=== PATIENT | male | born 1970 | race Caucasian/White ===

== ENCOUNTER 2020-05-22 08:25 | Outpatient (CLI) | payer OTHER, SELFPAY ==
--- NOTE | 2020-05-22 08:31 | EST_ITS ---
Patient Info Name: Sony Rinaldi Age: 50 years : 1970 Gender: Male Ht: 66 in Wt: 160 lbs BSA: 1.85 m2 Exam Date: 05/22/2020 8:44 AM Exam Location: [facility] Stress Patient Status: Outpatient Admit Date: 05/22/2020 Staff Ordering Physician: Britton Diop MD Attending Provider: Britton Diop MD Exercise Technologist: Dina Abbasi RDCS Exercise Physician: Baldomero Olson DO Exam Type: CA stress test treadmill Study Info Indications R07.9 - Chest pain, unspecified A treadmill exercise stress test was performed. Summary 1. 1. Negative Nadir exercise stress test for ischemic ST changes by ECG criteria. 2. 2. Good functional capacity, achieving 10 METs of workload. 3. 3. Appropriate HR response to exercise. 4. 4. Appropriate HR recovery at 1 minute post exercise. 5. 5. No imaging with stress testing. 6. 6. Patient informed of the above results. Protocol: Nadir Stress ECG Details Stage: REST Duration (min): 0 min : 48 sec Speed (mph): 0.0 Grade (%): 0 HR (bpm): 89 SBP (mmHg): 133 DBP (mmHg): 86 METS: --- Stage: REST Duration (min): 8 min : 8 sec Speed (mph): 0.0 Grade (%): 0 HR (bpm): 92 SBP (mmHg): 133 DBP (mmHg): 86 METS: --- Stage: STAGE 1 Duration (min): 1 min : 0 sec Speed (mph): 1.7 Grade (%): 10 HR (bpm): 106 SBP (mmHg): 133 DBP (mmHg): 86 METS: --- Stage: STAGE 1 Duration (min): 2 min : 0 sec Speed (mph): 1.7 Grade (%): 10 HR (bpm): 109 SBP (mmHg): 133 DBP (mmHg): 86 METS: --- Stage: STAGE 1 Duration (min): 3 min : 0 sec Speed (mph): 1.7 Grade (%): 10 HR (bpm): 112 SBP (mmHg): 149 DBP (mmHg): 77 METS: --- Stage: STAGE 2 Duration (min): 1 min : 0 sec Speed (mph): 2.5 Grade (%): 12 HR (bpm): 120 SBP (mmHg): 149 DBP (mmHg): 77 METS: --- Stage: STAGE 2 Duration (min): 2 min : 0 sec Speed (mph): 2.5 Grade (%): 12 HR (bpm): 124 SBP (mmHg): 158 DBP (mmHg): 78 METS: --- Stage: STAGE 2 Duration (min): 3 min : 0 sec Speed (mph): 2.5 Grade (%): 12 HR (bpm): 127 SBP (mmHg): 158 DBP (mmHg): 78 METS: --- Stage: STAGE 3 Duration (min): 1 min : 0 sec Speed (mph): 3.4 Grade (%): 14 HR (bpm): 134 SBP (mmHg): 158 DBP (mmHg): 78 METS: --- Stage: STAGE 3 Duration (min): 2 min : 0 sec Speed (mph): 3.4 Grade (%): 14 HR (bpm): 142 SBP (mmHg): 158 DBP (mmHg): 78 METS: --- Stage: STAGE 3 Duration (min): 3 min : 0 sec Speed (mph): 3.4 Grade (%): 14 HR (bpm): 146 SBP (mmHg): 160 DBP (mmHg): 94 METS: --- Stage: RECOVERY Duration (min): 0 min : 59 sec Speed (mph): 0.0 Grade (%): 0 HR (bpm): 133 SBP (mmHg): 160 DBP (mmHg): 94 METS: --- Stage: RECOVERY Duration (min): 1 min : 59 sec Speed (
== END 2020-05-22 08:26 | disposition home or self-care (01) ==
PROVIDERS: PCP Family Medicine; Visit Provider Family Medicine
DX: R07.9 Chest pain, unspecified (principal)
CPT/HCPCS: 93017

== ENCOUNTER → 2021-06-26 09:57 | Outpatient (CLI) | payer OTHER, SELFPAY ==
--- NOTE | ~2021-06-26 | MM_ITS ---
EXAMINATION: MM diagnostic mammo unilat LT HISTORY: Left breast lump found in April, not noticed dilatation today. TECHNIQUE: MLO and cc views of left breast; comparison MLO view of right breast. CAD analysis was sub mitted and interpreted. High resolution complete left axillary and left breast ultrasound was perform ed. COMPARISON: 07/03/2009 left mammogram BREAST PARENCHYMAL COMPOSITION: The breasts are almost entirely fatty. FINDINGS: MAMMOGRAPHIC FINDINGS: Minimal left gynecomastia, stable since 07/03/2009. Left axillary lymph nodes are noted, partially incl uded in the 06/2009 MLO view. On cone compression MLO view today these multiple left axillary nodes l ikely normal. Sonographic correlation of the left breast and axilla was performed. ULTRASOUND: Benign left axillary lymph node measuring 7 x 11.6 mm, thin uniform hypoechoic cortex and prominent f atty hilum. No suspicious left breast mass is noted. IMPRESSION: 1. Minimal left gynecomastia, stable since 07/03/2009 2. No mammographic evidence of malignancy BI-RADS Category 2: Benign finding(s). Reviewed, dictated and finalized at location A.
--- NOTE | ~2021-06-26 | US_ITS ---
US breast LT complete DATE: 06/26/2021 11:14 Please refer to 06/26/2021 combined left diagnostic mammogram and left breast ultrasound report. BI-RADS Category 2: Benign Reviewed, dictated and finalized at Location A. Reviewed, dictated and finalized at location A.
== END ==
PROVIDERS: PCP Family Medicine; Visit Provider Nurse Practitioner Family
DX: N62 Hypertrophy of breast (principal)
CPT/HCPCS: 76641; 77065

== ENCOUNTER 2022-09-19 16:37 | Emergency (ER) | payer OTHER, SELFPAY ==
[2022-09-19 16:50] VITALS: BP 159/103; PULSE 91; RESP 16; TEMP 37; O2SAT 99
--- NOTE | 2022-09-19 17:09 | ED.EYEPROB ---
HPI - Eye Problem General Chief complaint: Eye Problems Stated complaint: R EYE PAIN Time Seen by Provider: 09/19/22 16:55 Source: patient Mode of arrival: ambulatory Limitations: no limitations History of Present Illness HPI Narrative: Mr. Eckert is a 52-year-old male patient presenting to the clinic today with complaints of right eye pain x2 days. He reports that he thinks that he got something into his eye Thursday night however he does not recall any injury. He does not wear contacts. He reports that his vision is blurry in his eye is watering a lot with discomfort. Lights are making the discomfort worse. Denies any loss of vision Related Data Home Medications Medication Instructions Recorded Confirmed citalopram 10 mg tablet 10 mg PO DAILY 10/18/19 09/19/22 diphenhydramine HCl 25 mg tablet 25 mg PO Q6H PRN allergy symptoms 10/18/19 09/19/22 (Benadryl Allergy) alprazolam 0.25 mg tablet 0.25 mg PO BID PRN anxiety 02/09/20 09/19/22 cetirizine 10 mg tablet (Zyrtec) 10 mg PO DAILY PRN allergy symptoms 02/09/20 09/19/22 fluticasone propionate 50 1 spray intranasal BID 02/09/20 09/19/22 mcg/actuation nasal spray,suspension (Flonase Allergy Relief) lamotrigine 25 mg tablet 25 mg PO DAILY 02/04/21 09/19/22 Allergies Allergy/AdvReac Type Severity Reaction Status Date / Time ibuprofen Allergy Mild trigger Verified 09/19/22 16:46 asthma attach aspirin Allergy Unknown Asthma Verified 09/19/22 16:46 grass pollen Allergy Unknown Asthma Verified 09/19/22 16:46 tree and shrub pollen Allergy Unknown asthma Verified 09/19/22 16:46 Review of Systems Review of Systems: Pertinent positives per HPI. Patient denies any fever, chills, rash, headache, visual changes, dizziness, cough, runny nose, sore throat, shortness of breath, chest pain, palpitations, nausea, vomiting, diarrhea, constipation, abdominal pain, or any urinary issues. PMFSH Past Medical History Medical History Acute sinusitis, unspecified Allergies Arthritis of right acromioclavicular joint Asthma Asymmetry of clavicles BMI 25.0-25.9,adult BMI 27.0-27.9,adult Breast lump Chest pain Chronic pain in right shoulder Colon cancer screening COVID-19 (10/28/20) Encounter for prostate cancer screening Encounter for wellness examination in adult History of kidney stones Subacromial impingement of right shoulder Vitamin B12 deficiency anemia Family History Family History Mother Family history of thyroid disease Patient's mother is in good health Grandparent Diabetes mellitus, Onset Age: 72 Family history of alcoholism Family history of malignant neoplasm of stomach Family history of malignant neoplasm Family history of lung cancer Father Patient's father is in good health Family history of cardiovascular disease Diabetes mellitus Sibling Asthma Social History Social History Smoking status: Never smoker Alcohol intake: former Drinks per week: 4 Substance use: never Substance use type: does not use Additional occupation/education comments: Teacher Comments At the time of my signature, I reviewed and agree with the nursing past medical, surgical, social, and family history. There is no relevant family history pertinent to the patient complaint. Exam Narrative: General: Well-developed, well nourished, in no apparent distress Head: Normocephalic, atraumatic Eyes: Pupils equally round and reactive to light bilaterally, EOM intact, left sclera and conjunctive clear, right sclera and conjunctiva injected, watery clear discharge from the right eye, left lids normal, right lids mild swelling/redness Ears: TMs intact and clear, ear canals clear, no drainage, grossly hearing normal. Nose: Nares patent, no discharge, no inflammation, no si
== END 2022-09-19 17:15 | disposition home or self-care (01) ==
PROVIDERS: Emergency Provider Nurse Practitioner Family; PCP Family Medicine
DX: H18.9 Unspecified disorder of cornea (principal); T15.11XA Foreign body in conjunctival sac, right eye, initial encounter; X58.XXXA Exposure to other specified factors, initial encounter; M19.011 Primary osteoarthritis, right shoulder; J45.909 Unspecified asthma, uncomplicated; Z86.16 Personal history of COVID-19
CPT/HCPCS: 65205; 99213; A9270; G0463

== ENCOUNTER → 2022-09-22 16:09 | Outpatient (CLI) | payer OTHER, SELFPAY ==
--- NOTE | ~2022-09-22 | MR_ITS ---
EXAMINATION: MR shoulder RT wo con DATE: 09/22/2022 16:48 INDICATION: Right shoulder pain TECHNIQUE: Magnetic resonance imaging (MRI) of the right shoulder was performed without intravenous c ontrast. Sequences included axial PD-weighted FS FSE, coronal oblique PD-weighted FS FSE, coronal obl ique T2-weighted FS FSE, sagittal PD-weighted FS FSE, and sagittal T1-weighted SE. COMPARISON: None. FINDINGS: Coracoacromial arch: The acromion undersurface is curved in morphology (type II). Small anterior subacromial spur at the a cromial insertion of the normal coracoacromial ligament. Moderate acromioclavicular osteoarthritis wi th tiny inferiorly directed osteophytes which remains separate from the underlying supraspinatus musc le belly by thin intervening fat plane. Minimal subarticular cystic change along the lateral head of the clavicle. Rotator cuff: Moderate tendinopathy without tear at the conjoined portion of the supraspinatus and infraspinatus te ndons with mild tendinopathy of the more anterior supraspinatus and posterior infraspinatus tendon. T he teres minor and subscapularis tendons are normal. Normal rotator cuff muscle bulk and signal. Biceps tendon, glenoid labrum and glenohumeral cartilage: Long head of the biceps tendon is normal. Glenoid labrum is normal. Glenohumeral cartilage is normal. Fluid: Physiologic amount of fluid in the glenohumeral joint and biceps tendon sheath. No loose osteochondr al bodies. Small amount of fluid in the subacromial/subdeltoid bursa consistent with mild bursitis. Bones: Normal marrow signal with no edema, fracture or abnormal marrow replacing process. IMPRESSION: 1. Mild to moderate supraspinatus and infraspinatus tendinopathy without tear, greatest at the conjoi sergo portion of the tendon. 2. Moderate acromioclavicular osteoarthritis. 3. Mild subacromial/subdeltoid bursitis. Reviewed, dictated and finalized at location A. IMPRESSION: 1. Mild to moderate supraspinatus and infraspinatus tendinopathy without tear, greatest at the conjoined portion of the tendon. 2. Moderate acromioclavicular osteoarthritis. 3. Mild subacromial/subdeltoid bursitis.
== END ==
PROVIDERS: PCP Family Medicine; Visit Provider Nurse Practitioner
DX: G89.29 Other chronic pain (principal); M25.511 Pain in right shoulder; M75.81 Other shoulder lesions, right shoulder; M19.011 Primary osteoarthritis, right shoulder; M75.51 Bursitis of right shoulder
CPT/HCPCS: 73221

== ENCOUNTER 2022-10-07 00:55 | Day surgery (SDC) | payer OTHER, SELFPAY ==
[2022-10-03 09:31] VITALS: BMI 26.6
--- NOTE | 2022-10-03 09:36 | PC.NURSE ---
Report to the Outpatient Waiting Room, entrance under the green pavilion located off [facility], at time 0830 on date 10/07/22. Planned Procedure Time: 1030. Time changes happen often and if your time is changed the preop area will call you the afternoon before. - You and your visitor will be asked to self-screen and do not enter if you have any COVID symptoms. - We encourage only one visitor and NO visitors under age 16 are allowed at this time. Your visitor will receive communication by the phone number that is given day of service. - The patient visitor is requested to social distance or may leave the building when not with patient due to restrictions. - A mask is OPTIONAL within the hospital. Patients may have clear liquids (water, carbonated beverages, clear teas, apple juice) until 3 hours prior to surgery with a maximum of 20 ounces. - No food from midnight until time of surgery Take the following medications with a SIP of water the morning of surgery: INHALER, CITALOPRAM, LAMOTRIGINE Medications to discontinue per physician: N/A Date to take last dose: N/A Please no make-up, nail setswana, hairspray, perfume, deodorant, or body powder the day of surgery. No jewelry (including any body piercings) or valuables the day of surgery, leave them at home. Please take a shower or bath the night before, or the morning of, surgery with an antibacterial soap. Wear comfortable, loose fitting clothing. - Jewelry must be removed prior to entering the operating room. Rings and piercings that are not removed may be cut off. - The hospital will not accept responsibility for valuables. - Please leave all valuables, including medications, at home the day of surgery. If you are going home after surgery, a licensed milk wagon driver must drive you home. - NO public transportation without another adult. - We recommend that an adult stay with you for 24 hours following discharge. - We also recommend that you do not drive, make important decision, drink alcoholic beverages, or take any drugs that were not prescribed by your health care provider for at least 24 hours after your discharge time. Follow any additional instructions given to you from your surgeon. If you or anyone in your household have experienced Covid symptoms in the past week, please notify your surgeon or the nurse liaison at the phone number below for possible testing. Telephone instructions given to PT - MARK SEARS and asked if any additional questions and then verbalized understanding. Patient advised to call surgeon office or pre surgery nurse liaison [phone] if any additional questions.
[2022-10-07] VITALS (11 sets, daily range): BP systolic 126–152; BP diastolic 69–94; PULSE 80–103; RESP 14–18; TEMP 36.3–36.8; O2SAT 93–99
[2022-10-07] MEDS: ACETAMINOPHEN 500 MG TABLET 1000 MG PO (08:48)
[2022-10-07] MEDS: LACTATED RINGERS 1,000 ML 30 ML IV CONT ×2 (08:48→11:43)
--- NOTE | 2022-10-07 09:32 | WPDHPUPDATE1 ---
History and Physical Update Update Date/Time: 10/07/22 09:32 History and Physical has been reviewed, including an updated exam of the patient. There are NO changes in the patient's condition. Risks, benefits, and alternatives have been discussed and questions answered. Patient agrees to proceed with procedure.
--- NOTE | 2022-10-07 09:35 | WPDANESEPPF ---
Anes - Initial Pre Proc Eval Procedure: Operation Date: 10/07/22 10:00 Proposed Procedures p Right Shoulder Acromioplasty, Distal Clavicle Excision - Josef Brizuela MD Date/Time: 10/07/22 09:35 Surgeon: Josef Brizuela MD Pre Op Diagnosis: right shoulder impingement , ac arthritis Patient Data Age: 52 Gender: M Height: 1.68 m Weight: 76.2 kg Last Vital Signs Temp 36.8 C 10/07/22 08:56 Pulse 91 10/07/22 08:56 Resp 16 10/07/22 08:56 BP 134/79 10/07/22 08:56 Pulse Ox 98 10/07/22 08:56 O2 Del Method Room Air 10/07/22 08:56 Allergies Allergy/AdvReac Type Severity Reaction Status Date / Time ibuprofen Allergy Mild trigger Verified 10/07/22 08:03 asthma attach aspirin Allergy Unknown Asthma Verified 10/07/22 08:03 grass pollen Allergy Unknown Asthma Verified 10/07/22 08:03 tree and shrub pollen Allergy Unknown asthma Verified 10/07/22 08:03 Home Medications Medication Instructions Recorded Confirmed Type citalopram 10 mg tablet 10 mg PO DAILY 10/18/19 10/07/22 History diphenhydramine HCl 25 mg tablet 25 mg PO Q6H PRN allergy symptoms 10/18/19 10/03/22 History (Benadryl Allergy) albuterol sulfate 1.25 mg/3 mL 1.25 mg (3 mL) inhalation Q4-6H 02/09/20 10/07/22 Rx solution for nebulization PRN bronchospasm #90 mL alprazolam 0.25 mg tablet 0.25 mg PO BID PRN anxiety 02/09/20 10/03/22 History cetirizine 10 mg tablet (Zyrtec) 10 mg PO DAILY PRN allergy symptoms 02/09/20 10/07/22 History fluticasone propionate 50 1 spray intranasal BID 02/09/20 10/07/22 History mcg/actuation nasal spray,suspension (Flonase Allergy Relief) lamotrigine 25 mg tablet 25 mg PO DAILY 02/04/21 10/07/22 History mometasone-formoterol HFA 200 2 puff inhalation Q12H #39 grams 10/28/21 10/07/22 Rx mcg-5 mcg/actuation aerosol inhaler (Dulera) pantoprazole 40 mg tablet,delayed 40 mg PO QAM #90 tabs 09/29/22 10/07/22 Rx release (Protonix) Patient hx anesthesia problems: none Family hx anesthesia problems: none Results Review: All pre-operative results and documents have been reviewed as part of the pre-operative evaluation. [facility] Past Medical History Medical History Acute sinusitis, unspecified Allergies Arthritis of right acromioclavicular joint Asthma Asymmetry of clavicles BMI 25.0-25.9,adult BMI 27.0-27.9,adult Breast lump Chest pain Chronic pain in right shoulder Colon cancer screening COVID-19 (10/28/20) Encounter for prostate cancer screening Encounter for wellness examination in adult History of kidney stones Subacromial impingement of right shoulder Vitamin B12 deficiency anemia Surgical History Surgical History (Updated 10/07/22 @ 09:36 by Jamshid Mojica MD) H/O sinus surgery H/O thumb surgery S/P cystoscopy Family History Family History Mother Family history of thyroid disease Patient's mother is in good health Grandparent Diabetes mellitus, Onset Age: 72 Family history of alcoholism Family history of malignant neoplasm of stomach Family history of malignant neoplasm Family history of lung cancer Father Patient's father is in good health Family history of cardiovascular disease Diabetes mellitus Sibling Asthma Social History Social History Smoking status: Never smoker Alcohol intake: current Drinks per week: 4 Alcohol use details: 2/MONTH Substance use: never Substance use type: does not use Living arrangements: with family Additional occupation/education comments: Teacher Spiritual care concerns: No Anes - Eval Final PreProcedure Day of Procedure 10/07/22 09:35 Patient weight: overweight Heart: regular rate and rhythm Lungs: clear to auscultation Airway: Mallampati scale class II Neurological: alert and oriented Last oral intake: >/= 8
--- NOTE | 2022-10-07 09:58 | WPDANESPNB ---
Anes - Peripheral Nerve Block Date/Time: 10/07/22 09:58 I have discussed with the patient/family/POA the placement of a peripheral nerve block for post-operative pain management, including associated risks, benefits, complications, and side effects. Alternative methods of post-operative analgesia were detailed. Questions were solicited and answers provided to the satisfaction of the patient/family/POA. Time-Out: A pre-procedural Time-Out was completed immediately before starting the procedure and confirmed: Patient Identification, Site, Procedure, Patient Position and the Availability of Requisite Equipment. Clinical Indications: Acute post-operative pain management requested by the operative surgeon. Nerve Block Insertion Note Anes-nerve block: interscalene right Patient position: supine Skin prep: chlorhexidine Needle: 22 gauge, stimulating, insulated echogenic needle. Needle length: 50 mm Technique: ultrasound Injectate: bupivacaine 0.5% with epi 5 mcg/ml (30cc no epi) and dexamethasone (mg) (8) Observations: tolerated well Complications: none Procedure start time:: 955 Procedure end time:: 1002
[2022-10-07] MEDS: ceFAZolin 2 GM/D5W 50 ML 2 GM/50 ML BAG IVPB (10:17)
[2022-10-07] MEDS: LIDOCAINE HCL 1% LOCAL INJ 20 ML VIAL 10 ML INFILTRATE (10:59)
--- NOTE | 2022-10-07 11:37 | W.PM.PROC2 ---
Procedure Note - Detailed Date of Procedure 10/07/22 Pre-op Diagnosis right shoulder impingement , ac arthritis Post-op Diagnosis Other ( right rotator cuff tear with AC arthritis) Procedure Performed right shoulder rotator cuff repair with distal clavicle excision Surgeon Josef Brizuela MD Research Quality Assurance Analyst Mitra Vasquez Anesthesia General and Regional Description of Procedure Patient was identified and proper site identified. In the preop holding area the anesthesia team performed a right upper extremity block. He was then taken to the operating room and transferred to the or table taking care to pad the torso and extremities. After general anesthetic induction and intubation, he was put in a semi beach chair position in the usual manner for a right shoulder procedure. His head was secured taking care to neither rotate nor extend the head and neck. The right upper extremity was prepped and draped free in usual sterile fashion. The subcutaneous tissue in the area of the incision was injected with 10 cc of 1% lidocaine solution. An oblique anterior incision was made extending from the AC joint distally in line with the fibers of the deltoid. Subcutaneous tissue was sharply dissected down to the deltoid fascia. The deltoid was dissected off the anterior portion of the acromion in the distal end of the clavicle. A 2 cm split was made at the junction between the anterior and middle thirds of the deltoid. Using the microsagittal saw the last 8 mm of clavicle removed. The saw was also used to perform the acromioplasty and then the undersurface of the acromion was rasped smooth. the rotator cuff was inspected. In the mid portion of the supraspinatus tendon there was an area of erosion of at least 50% of the tendon with frayed edges. The cuff attachment to the greater tuberosity was solid throughout. The degenerative tendon was debrided and then the defect repaired side to side with 2. Ethibond suture giving a nice solid repair which was stable as the shoulder was taken through range of motion. The wound was irrigated with sterile NaCl solution. The deltoid was repaired back to the acromion with 2. Ethibond suture passed through bone and the remainder of the deltoid repair carried out with 2. Vicryl. Subcutaneous tissue was reapproximated with 3-0 V lock and then tissue adhesive used for the skin. Sterile dressing was applied. There were no known intraoperative complications, and perioperative antibiotics were administered. Estimated Blood Loss 20 Drains No Packing No Pathology None sent Complications No immediate complications Condition Stable Disposition PACU
--- NOTE | 2022-10-07 12:35 | SUR.PHASEI ---
1230 DR KAHN AWARE PT C/O NOT BEING ABLE TO BREATHE . BREATH SOUNDS CLEAR IN RT UPPER LOBE, & DIMINISHED IN RT LOWER LOBES. O2 SATS 91-92% ON ROOM AIR. NO WHEEZING NOTED.- DR KAHN STATES TO CONTINUE TO MONITOR.
--- NOTE | 2022-10-07 13:07 | SUR.PHASEI ---
8275 DR KAHN ASSESSING PTS LUNG SOUNDS & SPEAKING TO HIM IN REGARDS TO HIS SYMPTOMS OF FEELING LIKE HE CAN'T BREATHE ON HIS RT SIDE. - STATES PT CAN BE DISCHARGED TO THE OP RECOVERY & CAN BE DISCHARGED HOME.
== END 2022-10-07 14:10 | disposition home or self-care (01) ==
PROVIDERS: PCP Family Medicine; Visit Provider Orthopaedic Surgery
PROC: (CPT 23420; principal; 2022-10-07 10:00)
DX: M75.41 Impingement syndrome of right shoulder (principal); M75.101 Unspecified rotator cuff tear or rupture of right shoulder, not specified as traumatic; M19.011 Primary osteoarthritis, right shoulder; G89.18 Other acute postprocedural pain; J45.909 Unspecified asthma, uncomplicated; Z79.51 Long term (current) use of inhaled steroids
CPT/HCPCS: 23412; 23120; 64415; A4565; A9270; J0330; J0690; J1100; J2250; J2405; J2704; J7120

== ENCOUNTER 2022-11-20 12:30 | Outpatient (RCR) | payer OTHER, SELFPAY ==
--- NOTE | 2022-10-09 14:34 | PTOPEVAL1 ---
Assessment and note entered by Davina Todd DPT Evaluation Information Assessment Status Evaluation Reported Pain Level Pain Score 3: Self Report Additional Pain Score Comments Surgery 10/07/22. Highest pain 8/10, current 3/10, lowest 0/10. Currently using a sling that he is supposed to wear in public but states he was told by he can take off at home and move his shoulder. Returns to MD in 2 weeks. Difficulty lifting his arm out to the side. Has not returned to all activities yet at home like cooking and cleaning. Pt is R handed. 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 Assessment PT Clinical Summary The patient is presenting to skilled therapy following right shoulder acromioplasty and distal clavicle excision on 10/07/22. He is currently wearing a sling at times and demonstrates limited range of motion in all planes which are contributing to his pain and difficulty performing his typical ADL's. He will benefit from therapy to address his impairments and safely return to prior level of function. Plan of Care Interventions Electrical Stimulation,Hot Pack/Cold Pack,Manual Therapy,Neuro Re-education,Patient/Caregiver Education,Therapeutic Activities,Therapeutic Exercise,Self-Care/Home Management PT Services Indicated Yes Treatment Frequency and 2 times a week for 6 weeks Duration These treatments will address the objective and functional deficits as defined above. The patient will be advanced safely and appropriately in order for the patient to progress towards his/her prior level of function. Additional exercises will be introduced and as well as a comprehensive home exercise program upon discharge, if needed, ?to ensure carryover of functional gains achieved in the clinic. This treatment plan has been reviewed and agreement upon by the patient.
--- NOTE | 2022-11-06 15:58 | PCPTNOTE ---
Patient reports he cannot make appointment due to not having coverage at work.
--- NOTE | 2022-11-13 16:22 | PCPTNOTE ---
Patient did not show up for scheduled appointment this date.
--- NOTE | 2022-11-20 13:05 | PTOPDC ---
Assessment and note entered by Davina Todd DPT Evaluation Information Assessment Status Progress Reported Pain Level Pain Score 0: Self Report Additional Pain Score Comments Pt reports improvements since surgery and therapy, states that it feels better than it did before surgery. I can do anything I want with this . Has been able to return to the gym. States he saw the MD yesterday and was released without restriction . Feels confident with discharge from therapy this visit. Assessment PT Clinical Summary The patient has made excellent progress in therapy . He reports greatly decreased pain and no functional limitations. He demonstrates excellent right shoulder flexion, abduction, and internal rotation and near full strength in all planes. Due to his progress, plan for discharge at this time. He has been educated in an HEP to continue progressing his internal range of motion and his strength independently. Plan of Care PT Services Indicated No
== END 2022-11-21 09:24 | disposition home or self-care (01) ==
LOC: ANHGOSHPT 12:30
PROVIDERS: PCP Family Medicine; Visit Provider Orthopaedic Surgery
DX: Z48.89 Encounter for other specified surgical aftercare (principal); Z98.890 Other specified postprocedural states
CPT/HCPCS: 97110; 97112; 97140; 97161; 99199

== ENCOUNTER 2023-04-12 19:24 | Emergency (ER) | payer OTHER, SELFPAY ==
--- NOTE | 2023-04-12 19:26 | ED.ABDPAIN ---
HPI - Abdominal Pain General Chief Complaint: Abdominal Pain Stated Complaint: stomach pain Time Seen by Provider: 04/12/23 19:25 Source: patient Mode of arrival: ambulatory Limitations: no limitations History of Present Illness HPI narrative: Sony is a 53-year-old male patient presenting to the clinic today with complaints of abdominal pain and diarrhea that began 3:00 a.m. today. He reports no vomiting but has had some nausea. Is able to keep fluids down. Complaints of lower mid abdominal pain that is sharp and stabbing rates pain currently a 6/10. Pain does not radiate. Denies any blood in the stool. States that he had a pretty bad headache that left him unable to get out of bed 1st couple hours today. Currently rates headache 6/10. States that he just finished a round of prednisone and has gotten bowel infections from the prednisone in the past. Denies any known fever or chills. No urinary symptoms. Related Data Home Medications Medication Instructions Recorded Confirmed citalopram 10 mg tablet 10 mg PO DAILY 10/18/19 04/12/23 diphenhydramine HCl 25 mg tablet 25 mg PO Q6H PRN allergy symptoms 10/18/19 04/12/23 (Benadryl Allergy) alprazolam 0.25 mg tablet 0.25 mg PO BID PRN anxiety 02/09/20 04/12/23 cetirizine 10 mg tablet (Zyrtec) 10 mg PO DAILY PRN allergy symptoms 02/09/20 04/12/23 fluticasone propionate 50 1 spray intranasal BID 02/09/20 04/12/23 mcg/actuation nasal spray,suspension (Flonase Allergy Relief) lamotrigine 25 mg tablet 25 mg PO DAILY 02/04/21 04/12/23 Allergies Allergy/AdvReac Type Severity Reaction Status Date / Time ibuprofen Allergy Mild trigger Verified 04/12/23 19: asthma attach aspirin Allergy Unknown Asthma Verified 04/12/23 19:26 grass pollen Allergy Unknown Asthma Verified 04/12/23 19:26 tree and shrub pollen Allergy Unknown asthma Verified 04/12/23 19:26 Review of Systems Review of Systems: Pertinent positives per HPI. Patient denies any fever, chills, rash, headache, visual changes, dizziness, cough, runny nose, sore throat, shortness of breath, chest pain, palpitations, vomiting, constipation, or any urinary issues. [facility] Past Medical History Medical History Acute sinusitis, unspecified Allergies Asthma Asymmetry of clavicles BMI 25.0-25.9,adult BMI 27.0-27.9,adult Breast lump Chest pain Chronic pain in right shoulder Colon cancer screening COVID-19 (10/28/20) Encounter for prostate cancer screening Encounter for wellness examination in adult History of kidney stones Vitamin B12 deficiency anemia Surgical History Surgical History Arthritis of right acromioclavicular joint distal clavicle excision with rotator cuff repair on October 07, 2022 H/O sinus surgery H/O thumb surgery Right rotator cuff tear right rotator cuff repair with distal clavicle excision on October 07, 2022 S/P cystoscopy Family History Family History Mother Family history of thyroid disease Patient's mother is in good health Grandparent Diabetes mellitus, Onset Age: 72 Family history of alcoholism Family history of malignant neoplasm of stomach Family history of malignant neoplasm Family history of lung cancer Father Patient's father is in good health Family history of cardiovascular disease Diabetes mellitus Sibling Asthma Social History Social History Smoking status: Never smoker Alcohol intake: current Drinks per week: 4 Alcohol use details: 2/MONTH Substance use: never Substance use type: does not use Living arrangements: with family Occupation/Education: occupation Additional occupation/education comments: Teacher Spiritual care concerns: No Comments At the time of my signature, I
[2023-04-12 19:31] VITALS: BP 170/100; PULSE 84; RESP 16; TEMP 36.6; O2SAT 98
[2023-04-12 19:32] VITALS: BP 163/92; BP 170/100; PULSE 84; RESP 16; TEMP 36.6; O2SAT 98
== END 2023-04-12 19:52 | disposition short-term general hospital (02) ==
PROVIDERS: Emergency Provider Nurse Practitioner Family; PCP Family Medicine
DX: R10.30 Lower abdominal pain, unspecified (principal); R19.7 Diarrhea, unspecified; R51.9 Headache, unspecified; J45.909 Unspecified asthma, uncomplicated; Z86.16 Personal history of COVID-19
CPT/HCPCS: 99212; G0463

== ENCOUNTER 2023-04-12 20:25 | Emergency (ER) | payer OTHER, SELFPAY ==
--- NOTE | ~2023-04-12 | CT_ITS ---
CT of the Abdomen and Pelvis: Indication: Abdominal pain Technique: 2.5 mm axial scans were obtained through the abdomen and pelvis following intravenous adm inistration of 100 cc of Omnipaque 350. Dose reduction technique was used on this scan by utilizing a utomated exposure control and iterative reconstruction technique. The dose-length product (DLP) was 4 69.18 mGy-cm. Findings: Scans through the lung bases are unremarkable. The liver, spleen, pancreas, gallbladder, adrenals and kidneys are within normal limits. No evidence of aortic aneurysm. No lymphadenopathy. No bowel obstruction or bowel wall thickening. There is no evidence to suggest acute appendicitis. Images through the pelvis were performed. Urinary bladder unremarkable. Prostate gland and seminal ve sicles are unremarkable. No ascites. Impression: No significant abnormalities seen. Reviewed, dictated and finalized at [facility]. Impression: No significant abnormalities seen.
[2023-04-12 20:37] VITALS: BP 161/106; PULSE 81; RESP 16; TEMP 36.6; O2SAT 97
[2023-04-12 21:10] LABS: Basophils Percent Auto 0.4 % (0.2-1.2); Eosinophils Absolute Auto 0.2 K/mm3 (0-0.3); Eosinophils Percent Auto 1.3 % (0-4.4); Hematocrit 47.4 % (42.0-52.0); Hemoglobin 15.9 g/dL (14.0-18.0); Immature Granulocyte Absolute 0.07 K/mm3 (0.00-0.031); Immature Granulocyte Percent A 0.6 % (0-0.5); Lymphocytes Absolute Auto 1.84 K/mm3 (0.9-3.2); Lymphocytes Percent Auto 16.4 % (18.3-44.2); Mean Corpuscular HGB Conc 33.5 g/dl (32-36); Mean Corpuscular Hemoglobin 30.1 pg (26-34); Mean Corpuscular Volume 89.8 fl (80-100); Mean Platelet Volume 8.4 fl (7.4-10.4); Monocytes Absolute Auto 0.9 K/mm3 (0.1-0.6); Neutrophils Absolute Auto 8.2 K/mm3 (1.3-6.7); Neutrophils Percent Auto 73.3 % (45.5-73.1); Platelet Count Result 391 k/mm3 (150-375); Red Blood Count 5.28 M/mm3 (4.6-6.20); Red Cell Distribution Width 12.8 % (11.5-14.5); White Blood Count 11.2 K/mm3 (4.5-10.0)
[2023-04-12 21:13] LABS: Appearance Urine Cloudy (Clear); Bacteria Urine None Seen /hpf; Bilirubin Urine Negative (Negative); Blood Urine Negative (Negative); Color Urine Yellow (Yellow); Glucose Urine UA Negative (Negative); Ketones Urine Negative (Negative); Leukocyte Esterase Ur Negative LEU/UL (Negative); Nitrate Urine Negative (Negative); Non Pathogenic Casts 0-2; Protein Urine Negative (Negative); RBC Urine 0-2 /hpf (0-2); Squamous Epithelial Cell Urine None seen /hpf (Few); Urobilinogen Urine 0.2 mg/dL (<2.0); WBC Urine 0-5 /hpf; pH Urine 6.5 (5.0-9.0)
[2023-04-12 21:17] LABS: Add Urine Microscopic? YES
[2023-04-12 21:19] LABS: Alanine Aminotransferase 34 U/L (6-50); Albumin Level 4.3 g/dL (3.5-5.1); Alkaline Phosphatase 69 U/L (38-126); Anion Gap 6 mmol/L (8-16); Aspartate Amino Transferase 23 U/L (17-59); Bilirubin,Total 0.8 mg/dL (0.2-1.3); Blood Urea Nitrogen 10 mg/dL (9-20); Carbon Dioxide 30 mmol/L (22-30); Chloride 98 mmol/L (98-107); Estimated CRCL calculation 75 ml/min; Estimated Glomerular Filt Rate > 60; Glucose 114 mg/dL (65-110); Lipase 69 U/L (23-300); Potassium 3.4 mmol/L (3.4-5.0); Sodium 134 mmol/L (137-145)
--- NOTE | 2023-04-12 22:01 | ED.ABDPAIN ---
HPI - Abdominal Pain General Chief Complaint: Abdominal Pain Stated Complaint: abdominal pain Time Seen by Provider: 04/12/23 21:28 History of Present Illness HPI narrative: This is a 53-year-old male with past history of asthma, presenting to the emergency department complaining of periumbilical abdominal pain for the past 18 hours. He patient states this morning approximately 3 AM, he woke and noted cramping periumbilical pain, rated 7/10. This persisted throughout the day and is now accompanied by headache. He denies recent trauma. He is able to pass gas and stool with his last bowel movement 2 hours ago. He states 2 days ago, he finished a prednisone taper for an asthma exacerbation. Related Data Home Medications Medication Instructions Recorded Confirmed citalopram 10 mg tablet 10 mg PO DAILY 10/18/19 04/12/23 diphenhydramine HCl 25 mg tablet 25 mg PO Q6H PRN allergy symptoms 10/18/19 04/12/23 (Benadryl Allergy) alprazolam 0.25 mg tablet 0.25 mg PO BID PRN anxiety 02/09/20 04/12/23 cetirizine 10 mg tablet (Zyrtec) 10 mg PO DAILY PRN allergy symptoms 02/09/20 04/12/23 fluticasone propionate 50 1 spray intranasal BID 02/09/20 04/12/23 mcg/actuation nasal spray,suspension (Flonase Allergy Relief) lamotrigine 25 mg tablet 25 mg PO DAILY 02/04/21 04/12/23 Allergies Allergy/AdvReac Type Severity Reaction Status Date / Time ibuprofen Allergy Mild trigger Verified 04/12/23 20:44 asthma attach aspirin Allergy Unknown Asthma Verified 04/12/23 20:44 grass pollen Allergy Unknown Asthma Verified 04/12/23 20:44 tree and shrub pollen Allergy Unknown asthma Verified 04/12/23 20:44 Review of Systems Review of Systems: CONSTITUTIONAL: Denies fever, chills, or sweats. CARDIOVASCULAR: Denies chest pain, palpitations, or edema. RESPIRATORY: Denies cough or dyspnea. GASTROINTESTINAL: Periumbilical abdominal pain denies nausea, vomiting, or diarrhea. GENITOURINARY: Denies dysuria or hematuria. SKIN: Denies rash or itching. MUSCULOSKELETAL: Denies back pain, joint pain, or myalgia. NEUROLOGIC: Headache denies numbness, dizziness, or weakness. PSYCHIATRIC: Denies anxiety or depression. [facility] Past Medical History Medical History Acute sinusitis, unspecified Allergies Asthma Asymmetry of clavicles BMI 25.0-25.9,adult BMI 27.0-27.9,adult Breast lump Chest pain Chronic pain in right shoulder Colon cancer screening COVID-19 (10/28/20) Encounter for prostate cancer screening Encounter for wellness examination in adult History of kidney stones Vitamin B12 deficiency anemia Surgical History Surgical History Arthritis of right acromioclavicular joint distal clavicle excision with rotator cuff repair on October 07, 2022 H/O sinus surgery H/O thumb surgery Right rotator cuff tear right rotator cuff repair with distal clavicle excision on October 07, 2022 S/P cystoscopy Family History Family History Mother Family history of thyroid disease Patient's mother is in good health Grandparent Diabetes mellitus, Onset Age: 72 Family history of alcoholism Family history of malignant neoplasm of stomach Family history of malignant neoplasm Family history of lung cancer Father Patient's father is in good health Family history of cardiovascular disease Diabetes mellitus Sibling Asthma Social History Social History Smoking status: Never smoker Alcohol intake: current Drinks per week: 4 Alcohol use details: 2/MONTH Substance use: never Substance use type: does not use Living arrangements: with family Occupation/Education: occupation Additional occupation/education comments: Teacher Spiritual care concerns: No Course Course Emergency Course: 23:55 -W
[2023-04-12] MEDS: SODIUM CHLORIDE 0.9% IV 1,000 ML 999 ML IV CONT (22:07)
[2023-04-12] MEDS: PROCHLORPERAZINE EDISYLATE 10 MG/2 ML VIAL IV PUSH (22:09)
[2023-04-12 22:36] VITALS: PULSE 75; RESP 18; O2SAT 94
--- NOTE | 2023-04-12 22:37 | PC.NURSE ---
Pt to CT at this time.
[2023-04-12 23:07] VITALS: BP 151/83; PULSE 67; RESP 16; O2SAT 95
== END 2023-04-13 00:19 | disposition home or self-care (01) ==
PROVIDERS: Emergency Provider Preventive Medicine Aerospace Medicine; PCP Family Medicine
DX: R10.33 Periumbilical pain (principal); J45.909 Unspecified asthma, uncomplicated; E53.8 Deficiency of other specified B group vitamins; Z86.16 Personal history of COVID-19; Z87.442 Personal history of urinary calculi
CPT/HCPCS: 36415; 74177; 80053; 81001; 83690; 85025; 96361; 96365; 96375; 99284; J0131; J0780; J7030; Q9967

== ENCOUNTER 2023-05-07 12:43 | Outpatient (CLI) | payer OTHER, SELFPAY ==
--- NOTE | ~2023-05-07 | US_ITS ---
EXAMINATION: US scrotum doppler DATE: 05/07/2023 13:57 INDICATION: Other specified disorders of the medial genital organs TECHNIQUE: Testicular sonogram utilizing grayscale and Doppler COMPARISON: None. FINDINGS: The right testis measures 4.0 x 2.4 x 3.2 cm. The left testis measures 3.6 x 2.4 x 3.3 cm. There is normal vascular flow to both testes. The right epididymis contains an 8 mm cyst or spermatoc niru. The left epididymis contains a 2.1 cm cyst or spermatocele. There is no varicocele or hydrocele. IMPRESSION: 1. 2.1 cm cyst or spermatocele of the left epididymis. Reviewed, dictated and finalized at location [facility].
== END 2023-05-07 12:44 | disposition home or self-care (01) ==
PROVIDERS: PCP Family Medicine; Visit Provider Family Medicine
DX: N50.89 Other specified disorders of the male genital organs (principal)
CPT/HCPCS: 76870; 93976

== ENCOUNTER 2023-10-16 18:47 | Emergency (ER) | payer OTHER, SELFPAY ==
[2023-10-16 18:57] VITALS: BP 158/99; PULSE 86; RESP 16; TEMP 36.9; O2SAT 97
--- NOTE | 2023-10-16 19:13 | ED.URI ---
HPI - URI/Sore Throat General Chief Complaint: Upper Respiratory Infection Stated Complaint: Sinus Infection Time Seen by Provider: 10/16/23 19:07 Source: patient and RN notes reviewed Mode of arrival: ambulatory Limitations: no limitations History of Present Illness HPI Narrative: Patient presents today with a 2 week history of chest tightness and approximately 1 week history of productive cough. He has history of severe asthma for which he is treated by his career technical education instructor, Dr. Antonio. When he starts to feel this way he typically gets started on a course of steroids, then azithromycin. He was started on the prednisone, then his career technical education instructor called him in a 30 day supply of daily azithromycin to his pharmacy. States his doctor and pharmacy have been going back and forth with the Azithromycin prescription and it has not yet been filled since it was written 4 days ago and patient states his symptoms are worsening. He comes in today requesting a 5 day prescription for some azithromycin to get him through the weekend, so hopefully this long-term prescription can be resolved next week. Patient has also been taking Mucinex to help with his chest congestion. Related Data Home Medications Medication Instructions Recorded Confirmed citalopram 10 mg tablet 10 mg PO DAILY 10/18/19 10/16/23 diphenhydramine HCl 25 mg tablet 25 mg PO Q6H PRN allergy symptoms 10/18/19 10/16/23 (Benadryl Allergy) alprazolam 0.25 mg tablet 0.25 mg PO BID PRN anxiety 02/09/20 10/16/23 cetirizine 10 mg tablet (Zyrtec) 10 mg PO DAILY PRN allergy symptoms 02/09/20 10/16/23 fluticasone propionate 50 1 spray intranasal BID 02/09/20 10/16/23 mcg/actuation nasal spray,suspension (Flonase Allergy Relief) lamotrigine 25 mg tablet 25 mg PO DAILY 02/04/21 10/16/23 fluticasone fur. 200 mcg-umeclid 1 inh inhalation DAILY 06/19/23 10/16/23 62.5 mcg-vilant 25 mcg inhalat.powder (Trelegy Ellipta) prednisone 10 mg tablet 40 mg PO DAILY 10/16/23 10/16/23 Allergies Allergy/AdvReac Type Severity Reaction Status Date / Time ibuprofen Allergy Mild trigger Verified 10/16/23 18:54 asthma attach aspirin Allergy Unknown Asthma Verified 10/16/23 18:54 grass pollen Allergy Unknown Asthma Verified 10/16/23 18:54 tree and shrub pollen Allergy Unknown asthma Verified 10/16/23 18:54 Review of Systems Review of Systems: CONSTITUTIONAL: Denies body aches, fever, chills, or sweats. EYES: Denies visual changes, redness, or discharge. ENT: Denies rhinorrhea, congestion, sore throat, or otalgia. CARDIOVASCULAR: Denies chest pain, palpitations, or edema. RESPIRATORY: Denies dyspnea.+ cough, chest tightness GASTROINTESTINAL: Denies abdominal pain, nausea, vomiting, or diarrhea. GENITOURINARY: Denies dysuria or hematuria. SKIN: Denies rash, itching, or wounds. MUSCULOSKELETAL: Denies back pain, joint pain, or myalgia. NEUROLOGIC: Denies headache, numbness, tingling, or weakness. PSYCH: Denies depression or anxiety. [facility] Past Medical History Medical History Acute sinusitis, unspecified Allergies Asthma Asymmetry of clavicles BMI 25.0-25.9,adult BMI 27.0-27.9,adult BMI 28.0-28.9,adult Breast lump Chest pain Chronic pain in right shoulder Colon cancer screening COVID-19 (10/28/20) Encounter for prostate cancer screening PSA 0.8 on 04/21/2023. Encounter for wellness examination in adult Epididymal mass (~04/29/23) 1 cm mass left epididymis 04/29/2023.Scrotal ultrasound 05/07/2023 reveals a 2.1 cm cyst or spermatocele of the left epididymis. History of kidney stones Vitamin B12 deficiency anemia level low at 241 with hemoglobin 14.6 on 04/21/2023. Surgical History Surgical History Arthritis of right acromioclavicular joint distal clavicle excision with rotator cuff repair on October 07, 2022 H/O sinus surgery H/O thumb surgery
== END 2023-10-16 19:23 | disposition home or self-care (01) ==
PROVIDERS: Emergency Provider Nurse Practitioner
DX: J22 Unspecified acute lower respiratory infection (principal); J45.909 Unspecified asthma, uncomplicated; Z86.16 Personal history of COVID-19
CPT/HCPCS: 99213; G0463

== ENCOUNTER 2023-12-28 09:30 | Emergency (ER) | payer OTHER, SELFPAY ==
--- NOTE | 2023-12-28 09:33 | ED.GENADULT ---
HPI - General Adult General Chief complaint: Upper Respiratory Infection Stated complaint: Sinus Infection symptoms Source: patient, RN notes reviewed and old records reviewed Mode of arrival: ambulatory Limitations: no limitations History of Present Illness HPI narrative: 53-year-old male patient presents to [facility] with complaints sinus congestion, sinus drainage, chills, fever, started yesterday. Patient states is prone to sinus infections and has severe asthma. Patient taking [id number] medications with no relief. MD complaint: sinus congestion/pain Onset (ago): day(s) (1) Related Data Home Medications Medication Instructions Recorded Confirmed citalopram 10 mg tablet 10 mg PO DAILY 10/18/19 12/28/23 diphenhydramine HCl 25 mg tablet 25 mg PO Q6H PRN allergy symptoms 10/18/19 12/28/23 (Benadryl Allergy) alprazolam 0.25 mg tablet 0.25 mg PO BID PRN anxiety 02/09/20 12/28/23 cetirizine 10 mg tablet (Zyrtec) 10 mg PO DAILY PRN allergy symptoms 02/09/20 12/28/23 fluticasone propionate 50 1 spray intranasal BID 02/09/20 12/28/23 mcg/actuation nasal spray,suspension (Flonase Allergy Relief) lamotrigine 25 mg tablet 25 mg PO DAILY 02/04/21 12/28/23 fluticasone fur. 200 mcg-umeclid 1 inh inhalation DAILY 06/19/23 12/28/23 62.5 mcg-vilant 25 mcg inhalat.powder (Trelegy Ellipta) Allergies Allergy/AdvReac Type Severity Reaction Status Date / Time ibuprofen Allergy Mild trigger Verified 12/28/23 09:40 asthma attach aspirin Allergy Unknown Asthma Verified 12/28/23 09:40 grass pollen Allergy Unknown Asthma Verified 12/28/23 09:40 tree and shrub pollen Allergy Unknown asthma Verified 12/28/23 09:40 Review of Systems Constitutional: Constitutional: Reports no additional constitutional complaints, Denies body ache(s), Reports chills, Denies fatigue, Reports fever(s) and Denies headache(s) Eyes: Eyes: Reports no additional eye complaints and Denies blurry vision ENT: Reports system reviewed and no additional complaints, except as documented, Denies vertigo, Denies dizziness, Denies ear discharge, Denies otalgia, Reports facial pain, Reports headache(s), Denies nasal congestion, Denies nasal discharge, Reports sinus pain, Reports sinus pressure and Denies sore throat Cardiovascular: Cardiovascular: Reports no additional cardiovascular complaints, Denies chest pain, Denies chest pain at rest, Denies rapid heart rate and Denies dyspnea Respiratory: Respiratory: Reports no additional respiratory complaints, Denies chest congestion, Denies cough, Denies pain on inspiration, Denies pain with cough and Denies dyspnea Gastrointestinal: Gastrointestinal: Denies abdominal pain, Denies diarrhea, Denies nausea and Denies vomiting Integumentary/Breasts: Skin/Breast: Denies rash Neurologic: Reports system reviewed and no additional complaints, except as documented, Denies vertigo, Denies dizziness and Denies headache(s) Endocrine: Endocrine: Denies fatigue [facility] Past Medical History Medical History Acute sinusitis, unspecified Allergies Asthma Asymmetry of clavicles BMI 25.0-25.9,adult BMI 27.0-27.9,adult BMI 28.0-28.9,adult Breast lump Chest pain Chronic pain in right shoulder Colon cancer screening COVID-19 (10/28/20) Encounter for prostate cancer screening PSA 0.8 on 04/21/2023. Encounter for wellness examination in adult Epididymal mass (~04/29/23) 1 cm mass left epididymis 04/29/2023.Scrotal ultrasound 05/07/2023 reveals a 2.1 cm cyst or spermatocele of the left epididymis. History of kidney stones Vitamin B12 deficiency anemia level low at 241 with hemoglobin 14.6 on 04/21/2023. Surgical History Surgical History Arthritis of right acromioclavicular joint distal clavicle excision with rotator cuff repair on October 07, 2022 H/O sinus surgery H/O thumb surgery Right rotato
[2023-12-28 09:34] VITALS: BP 142/87; PULSE 98; RESP 16; TEMP 36.7; O2SAT 96
== END 2023-12-28 10:02 | disposition home or self-care (01) ==
PROVIDERS: Emergency Provider Registered Nurse; PCP Family Medicine
DX: J01.90 Acute sinusitis, unspecified (principal); J45.909 Unspecified asthma, uncomplicated; Z86.16 Personal history of COVID-19
CPT/HCPCS: 99213; G0463

== ENCOUNTER 2024-11-17 13:11 | Emergency (ER) | payer OTHER, SELFPAY ==
--- NOTE | ~2024-11-17 | XR_ITS ---
EXAMINATION: XR chest 2V DATE: 11/17/2024 16:46 INDICATION: Hypertension TECHNIQUE: PA and lateral views of the chest were obtained. COMPARISON: None FINDINGS: The lungs are clear with no focal airspace opacities, pulmonary edema, pleural effusion or pneumothor ax. The cardiomediastinal silhouette is normal. Visualized bones and soft tissues are unremarkable. IMPRESSION: 1. No acute cardiopulmonary disease Reviewed, dictated and finalized at location A. ET REPORT CLERK
[2024-11-17 13:15] VITALS: BP 152/92; PULSE 97; RESP 16; TEMP 36.4; O2SAT 99
--- NOTE | 2024-11-17 15:51 | ECG_ITS ---
Test Date: 2024-11-17 16:23:47 Measurements Intervals [place] Rate: 86 P: 43 GA: 152 QRS: 15 QRSD: 144 T: 10 QT: 393 QTc: 472 Interpretive Statements SINUS RHYTHM RIGHT BUNDLE BRANCH BLOCK [120+ ms QRS DURATION, UPRIGHT V1, 40+ ms S IN I/aVL/V4/V5/V6] No previous ECG available for comparison Electronically Signed On 11-18-2024 12:00:11 ETHNOLOGY PROFESSOR by Michael Andrew M.D.
[2024-11-17 16:04] VITALS: BP 150/95; PULSE 90; RESP 20; O2SAT 100
[2024-11-17 16:21] LABS: Basophils Percent Auto 0.4 % (0.2-1.2); Eosinophils Absolute Auto 0.2 K/mm3 (0-0.3); Eosinophils Percent Auto 1.9 % (0-4.4); Hematocrit 46.9 % (42.0-52.0); Hemoglobin 15.4 g/dL (14.0-18.0); Immature Granulocyte Absolute 0.03 K/mm3 (0.00-0.031); Immature Granulocyte Percent A 0.3 % (0-0.5); Lymphocytes Absolute Auto 1.52 K/mm3 (0.9-3.2); Lymphocytes Percent Auto 15.3 % (18.3-44.2); Mean Corpuscular HGB Conc 32.8 g/dl (32-36); Mean Corpuscular Hemoglobin 29.4 pg (26-34); Mean Corpuscular Volume 89.5 fl (80-100); Mean Platelet Volume 8.3 fl (7.4-10.4); Monocytes Absolute Auto 0.7 K/mm3 (0.1-0.6); Monocytes Percent Auto 6.9 % (2.6-8.5); Neutrophils Absolute Auto 7.5 K/mm3 (1.3-6.7); Neutrophils Percent Auto 75.2 % (45.5-73.1); Platelet Count Result 352 k/mm3 (150-375); Red Blood Count 5.24 M/mm3 (4.6-6.20); Red Cell Distribution Width 12.7 % (11.5-14.5)
[2024-11-17 16:35] LABS: Alanine Aminotransferase 56 U/L (6-50); Albumin Level 4.5 g/dL (3.5-5.1); Alkaline Phosphatase 74 U/L (38-126); Anion Gap 4 mmol/L (4-12); Aspartate Amino Transferase 31 U/L (17-59); Bilirubin,Total 0.6 mg/dL (0.2-1.3); Blood Urea Nitrogen 15 mg/dL (9-20); Calcium 8.9 mg/dL (8.4-10.2); Carbon Dioxide 31 mmol/L (22-30); Chloride 102 mmol/L (98-107); Estimated CRCL calculation 62 ml/min; Estimated Glomerular Filt Rate > 60; Glucose 103 mg/dL (65-110); Potassium 3.6 mmol/L (3.4-5.0); Sodium 137 mmol/L (137-145)
--- NOTE | 2024-11-17 16:40 | ED.GENADULT ---
HPI - General Adult General Chief complaint: Recheck/Abnormal Lab/Rx Stated complaint: htn Time Seen by Provider: 11/17/24 15:50 History of Present Illness HPI narrative: 54 old male with history of borderline hypertension presenting to the emergency department for evaluation for increased blood pressure. Patient states his blood pressure typically runs in the 140-150 range. Patient has had previous discussions with primary care physician to be started on blood pressure medications. At that time of those conversations patient was initially opposed. Patient states over the past few days he has felt that his blood pressure was increased. Related Data Home Medications ?Medication ?Instructions ?Recorded ?Confirmed ?Last Taken ?Type citalopram 10 mg tablet 10 mg PO DAILY 10/18/19 11/01/24 06/19/23 History diphenhydramine HCl 25 mg tablet 25 mg PO Q6H PRN allergy symptoms 10/18/19 11/01/24 06/18/23 History (Benadryl Allergy) alprazolam 0.25 mg tablet 0.25 mg PO BID PRN anxiety 02/09/20 11/01/24 06/18/23 History cetirizine 10 mg tablet (Zyrtec) 10 mg PO DAILY PRN allergy symptoms 02/09/20 11/01/24 06/19/23 History fluticasone propionate 50 1 spray intranasal BID 02/09/20 11/01/24 06/19/23 History mcg/actuation nasal spray,suspension (Flonase Allergy Relief) lamotrigine 25 mg tablet 25 mg PO DAILY 02/04/21 11/01/24 06/19/23 History fluticasone fur. 200 mcg-umeclid 1 inh inhalation DAILY 06/19/23 11/01/24 06/19/23 History 62.5 mcg-vilant 25 mcg inhalat.powder (Trelegy Ellipta) Allergies Allergy/AdvReac Type Severity Reaction Status Date / Time ibuprofen Allergy Mild trigger Verified 11/01/24 11:21 asthma attach aspirin Allergy Unknown Asthma Verified 11/01/24 11:21 grass pollen Allergy Unknown Asthma Verified 11/01/24 11:21 tree and shrub pollen Allergy Unknown asthma Verified 11/01/24 11:21 Review of Systems Review of Systems: All systems reviewed & are unremarkable except as noted in HPI and below PMFSH Past Medical History Medical History (Updated 11/17/24 @ 16:49 by Ramon Saxena MD) Essential hypertension Elevated blood pressure reading in office with white coat syndrome, without diagnosis of hypertension Mixed hyperlipidemia (05/24/24) cholesterol 205, triglycerides 82, HDL 52, LDL 135 with ratio 3.9 on 05/24/2024. Overweight (BMI 25.0-29.9) BMI 26.0-26.9,adult Radiculitis of right cervical region (~12/2023) pain in the right C6-C7 dermatome 03/09/2024. BMI 28.0-28.9,adult Epididymal mass (~04/29/23) 1 cm mass left epididymis 04/29/2023.Scrotal ultrasound 05/07/2023 reveals a 2.1 cm cyst or spermatocele of the left epididymis. Asthma Allergies History of kidney stones Chronic pain in right shoulder Asymmetry of clavicles BMI 25.0-25.9,adult Breast lump BMI 27.0-27.9,adult Vitamin B12 deficiency anemia level low at 241 with hemoglobin 14.6 on 04/21/2023. level at 395 with hemoglobin 15.7 on 05/24/2024. Acute sinusitis, unspecified COVID-19 (10/28/20) Chest pain Colon cancer screening Encounter for wellness examination in adult Encounter for prostate cancer screening PSA 0.8 on 04/21/2023. PSA 0.71 on 05/24/2024. Surgical History Surgical History Right rotator cuff tear right rotator cuff repair with distal clavicle excision on October 07, 2022 H/O sinus surgery S/P cystoscopy H/O thumb surgery Arthritis of right acromioclavicular joint distal clavicle excision with rotator cuff repair on October 07, 2022 Family History Family History Mother Family history of thyroid disease Patient's mother is in good health Grandparent Diabetes mellitus, Onset Age: 72 Family history of alcoholism Family history of malignant neoplasm of stomach Family history of malignant neoplasm Family history of lung cancer Father Patient's father is in good health Family history of cardiovascular disease Diabetes mellitus Sibling Asthma Social History Social History (Updated 11/01/24 @ 13:00 by Stephanie Cleaning CMA) Smoking status: Never smoker Alcohol intake: current Drinks per week: 4 Substance use: never Substance use type: does not use Do You Feel Safe in your Home?: Yes Lack of Transportation: No Lack of Food: Never True Current Housing: I Have Housing Concerned About Future Housing: No Difficulty Paying Gas/Electric Bills: No Difficulty Paying for Meds: No Currently Unemployed: No Education: Master's Degree or Higher Difficulty w/ Childcare or Family Care: No Living arrangements: with family Occupation/Education: occupation Additional occupation/education comments: Teacher Spiritual care concerns: No Exam Narrative: APPEARANCE: Well appearing, no pain, no distress, well-nourished. HEAD: normocephalic, atraumatic. EYES: PERRLA/EOMI, conjunctivae clear. NOSE: Normal no drainage EARS:TMS clear with good light reflex. THROAT: Pharynx clear, no exudate. NECK: Supple. No adenopathy, no masses. RESPIRATORY: Airway patent, respirations nonlabored. Clear to auscultation bilaterally, no rales, rhonchi, wheezing. CARDIOVASCULAR: Regular rate and rhythm without murmurs rubs or gallops. ABDOMINAL: Soft, nontender, nondistended, normal bowel sounds MUSCULOSKELETAL: Moves all extremities. Strength/ROM intact, No edema, No calf tenderness. NEURO: Alert. Cranial nerves II through XII intact. Good gait. Good coordination SKIN: Warm, dry. Normal Color PSYCHIATRIC: Normal affect/mood. Course Vital Signs Vital signs: Vital Signs Temperature 97.6 F 11/17/24 13:15 Pulse Rate 97 11/17/24 13:15 Respiratory Rate 16 11/17/24 13:15 Blood Pressure 152/92 H 11/17/24 13:15 Pulse Oximetry 99 11/17/24 13:15 Temperature 97.6 F 11/17/24 13:15 Pulse Rate 90 11/17/24 16:04 Respiratory Rate 20 11/17/24 16:04 Blood Pressure 150/95 H 11/17/24 16:04 Pulse Oximetry 100 11/17/24 16:04 Medical Decision Making [facility] Narrative Medical decision making narrative: 54-year-old male presenting to the emergency department for evaluation for hypertension. Patient reports that home blood pressure was in running 180 systolic. Upon arrival emergency department patient's blood pressure was back to his typical 150. Patient does feel improved. Case was discussed with the patient's primary care physician and he will be started blood pressure medications. Patient was afebrile with no leukocytosis hemoglobin of 15.4. No acute abnormalities of the CMP. Normal TSH normal Mag Chest x-ray showed no acute cardiopulmonary abnormality an EKG showed normal sinus rhythm with a right bundle. Differential Diagnosis Differential Diagnosis: Hypertensive urgency, hypertensive crisis, hypertension Vital Signs Vital Signs: Vital Signs Temperature 97.6 F 11/17/24 13:15 Pulse Rate 97 11/17/24 13:15 Respiratory Rate 16 11/17/24 13:15 Blood Pressure 152/92 H 11/17/24 13:15 Pulse Oximetry 99 11/17/24 13:15 Temperature 97.6 F 11/17/24 13:15 Pulse Rate 90 11/17/24 16:04 Respiratory Rate 20 11/17/24 16:04 Blood Pressure 150/95 H 11/17/24 16:04 Pulse Oximetry 100 11/17/24 16:04 Lab Data Lab results reviewed: Yes I reviewed the patient's lab results. 11/17/24 16:14 11/17/24 16:14 Labs: Lab Results 11/17/24 Range/Units 16:14 WBC 10.0 (4.5-10.0) K/mm3 RBC 5.24 (4.6-6.20) M/mm3 Hgb 15.4 (14.0-18.0) g/dL Hct 46.9 (42.0-52.0) % MCV 89.5 (80-100) fl MCH 29.4 (26-34) pg MCHC 32.8 (32-36) g/dl RDW 12.7 (11.5-14.5) % Plt Count 352 (150-375) k/mm3 MPV 8.3 (7.4-10.4) fl Immature Gran % (Auto) 0.3 (0-0.5) % Neut % (Auto) 75.2 H (45.5-73.1) % Lymph % (Auto) 15.3 L (18.3-44.2) % Good[place] % (Auto) 6.9 (2.6-8.5) % Eos % (Auto) 1.9 (0-4.4) % Baso % (Auto) 0.4 (0.2-1.2) % Lymph # (Auto) 1.52 (0.9-3.2) K/mm3 Good[place] # (Auto) 0.7 H (0.1-0.6) K/mm3 Eos # (Auto) 0.2 (0-0.3) K/mm3 Baso # (Auto) 0.0 (0.0-0.1) K/mm3 Abs Immat Gran (auto) 0.03 (0.00-0.031) K/mm3 Absolute Neuts (auto) 7.5 H (1.3-6.7) K/mm3 Absolute Nucleated RBC 0.000 (0.0-0.012) K/mm3 Nucleated RBC % 0.0 (0.0-0.2) % Sodium 137 (137-145) mmol/L Potassium 3.6 (3.4-5.0) mmol/L Chloride 102 (98-107) mmol/L Carbon Dioxide 31 H (22-30) mmol/L Anion Gap 4 (4-12) mmol/L BUN 15 D (9-20) mg/dL Creatinine 1.10 (0.7-1.3) mg/dL Estim Creat Clear Calc 62 ml/min Estimated GFR > 60 (59 - ) Glucose 103 (65-110) mg/dL Calcium 8.9 (8.4-10.2) mg/dL Total Bilirubin 0.6 (0.2-1.3) mg/dL AST 31 (17-59) U/L ALT 56 H (6-50) U/L Alkaline Phosphatase 74 (38-126) U/L Total Protein 7.0 (6.3-8.2) g/dL Albumin 4.5 (3.5-5.1) g/dL TSH (Reflex) 0.780 (0.465-4.68) uIU/mL Imaging Data Radiologist's impression: Impressions Chest X-Ray 11/17/24 16:47 IMPRESSION: 1. No acute cardiopulmonary disease ECG Data EKG #1: EKG Interpretation: normal rate, sinus rhythm, no ectopy, non-specific ST changes, RBBB and normal QT Discharge Plan Discharge Clinical Impression: Hypertension Patient Disposition: Home, Self-Care Condition: Stable Instructions: Antibiotic Form, Hypertension (ED), Normal Exam (ED) Additional Instructions: Your primary care physician did order blood pressure medications for you. You should check your blood pressure 2 to 3 times a week and you will need to have follow-up with your primary care physician in approximately 2 weeks. Patient Language: Wolof Prescriptions: No Action lamotrigine 25 mg tablet 25 mg PO DAILY diphenhydramine HCl [Benadryl Allergy] 25 mg tablet 25 mg PO Q6H PRN (Reason: allergy symptoms) citalopram 10 mg tablet 10 mg PO DAILY albuterol sulfate 1.25 mg/3 mL solution for nebulization 1.25 mg INHALATION Q4-6H PRN (Reason: bronchospasm) Qty: 90 3RF alprazolam 0.25 mg tablet 0.25 mg PO BID PRN (Reason: anxiety) cetirizine [Zyrtec] 10 mg tablet 10 mg PO DAILY PRN (Reason: allergy symptoms) fluticasone propionate [Flonase Allergy Relief] 50 mcg/actuation spray,suspension 1 spray NASAL BID pantoprazole [Protonix] 40 mg tablet,delayed release (DR/EC) 40 mg PO QAM Qty: 90 3RF azithromycin 250 mg tablet See Rx Instructions PO .COMPLEX Qty: 6 0RF Rx Instructions: take 500 mg today (day 1), then 250 mg for 4 days (days 2-5) PO prednisone 20 mg tablet 20 mg PO . q.a.m. Qty: 5 0RF irbesartan 150 mg tablet 150 mg PO DAILY Qty: 30 11RF Trelegy Ellipta 200-62.5-25 mcg Blister With Device 1 inh INHALATION DAILY Follow-up/Referrals: Britton Diop MD [Primary Care Provider] -
== END 2024-11-17 17:35 | disposition home or self-care (01) ==
PROVIDERS: Emergency Provider Emergency Medicine; PCP Family Medicine
DX: I10 Essential (primary) hypertension (principal); J45.909 Unspecified asthma, uncomplicated; D51.9 Vitamin B12 deficiency anemia, unspecified
CPT/HCPCS: 36415; 71046; 80053; 84443; 85025; 93005; 99283

== ENCOUNTER 2025-01-04 16:27 | Emergency (ER) | payer OTHER, SELFPAY ==
--- NOTE | 2025-01-04 16:29 | ED.URI ---
HPI - URI/Sore Throat General Chief Complaint: Upper Respiratory Infection Stated Complaint: CONGESTION Time Seen by Provider: 01/04/25 16:28 Source: patient Mode of arrival: ambulatory Limitations: no limitations History of Present Illness HPI Narrative: Off patient is a 54-year-old male that presents with cough, congestion and sinus pressure. Patient is currently on cefdinir and prednisone that PCP prescribed on Thursday. Requesting COVID and flu testing. Denies any fever, chills nausea, vomiting, diarrhea. Related Data Home Medications ?Medication ?Instructions ?Recorded ?Confirmed ?Last Taken ?Type citalopram 10 mg tablet 10 mg PO DAILY 10/18/19 01/04/25 06/19/23 History diphenhydramine HCl 25 mg tablet 25 mg PO Q6H PRN allergy symptoms 10/18/19 01/04/25 06/18/23 History (Benadryl Allergy) alprazolam 0.25 mg tablet 0.25 mg PO BID PRN anxiety 02/09/20 01/04/25 06/18/23 History cetirizine 10 mg tablet (Zyrtec) 10 mg PO DAILY PRN allergy symptoms 02/09/20 01/04/25 06/19/23 History fluticasone propionate 50 1 spray intranasal BID 02/09/20 01/04/25 06/19/23 History mcg/actuation nasal spray,suspension (Flonase Allergy Relief) lamotrigine 25 mg tablet 25 mg PO DAILY 02/04/21 01/04/25 06/19/23 History fluticasone fur. 200 mcg-umeclid 1 inh inhalation DAILY 06/19/23 01/04/25 06/19/23 History 62.5 mcg-vilant 25 mcg inhalat.powder (Trelegy Ellipta) cefdinir 300 mg capsule 300 mg PO Q12H 01/04/25 01/04/25 Unknown History Allergies Allergy/AdvReac Type Severity Reaction Status Date / Time ibuprofen Allergy Mild trigger Verified 01/04/25 16:33 asthma attach aspirin Allergy Unknown Asthma Verified 01/04/25 16:33 grass pollen Allergy Unknown Asthma Verified 01/04/25 16:33 tree and shrub pollen Allergy Unknown asthma Verified 01/04/25 16:33 Review of Systems Review of Systems: All systems reviewed & are unremarkable except as noted in HPI and below Constitutional: Constitutional: Denies body ache(s), Denies chills, Denies fatigue, Denies fever(s), Denies headache(s), Denies malaise and Denies weakness Eyes: Eyes: Denies blurry vision, Denies itchy eyes and Denies loss of vision ENT: Denies otalgia, Denies headache(s), Reports nasal congestion, Denies sinus pain, Reports sinus pressure and Denies sore throat Cardiovascular: Cardiovascular: Denies chest pain, Denies irregular heart rhythm and Denies dyspnea Respiratory: Respiratory: Reports chest congestion, Reports cough and Denies dyspnea Gastrointestinal: Gastrointestinal: Denies abdominal pain, Denies diarrhea, Denies nausea and Denies vomiting Musculoskeletal: Musculoskeletal: Denies back pain, Denies myalgias and Denies arthralgias Integumentary/Breasts: Skin/Breast: Denies pruritus and Denies rash Neurologic: Denies headache(s), Denies loss of vision and Denies weakness Psychiatric: Psychiatric: Reports no additional psychiatric complaints Endocrine: Endocrine: Denies fatigue Allergic/Immunologic: Allergic/Immunologic: Denies itchy eyes PMFSH Past Medical History Medical History Essential hypertension Elevated blood pressure reading in office with white coat syndrome, without diagnosis of hypertension Mixed hyperlipidemia (05/24/24) cholesterol 205, triglycerides 82, HDL 52, LDL 135 with ratio 3.9 on 05/24/2024. Overweight (BMI 25.0-29.9) BMI 26.0-26.9,adult Radiculitis of right cervical region (~12/2023) pain in the right C6-C7 dermatome 03/09/2024. BMI 28.0-28.9,adult Epididymal mass (~04/29/23) 1 cm mass left epididymis 04/29/2023.Scrotal ultrasound 05/07/2023 reveals a 2.1 cm cyst or spermatocele of the left epididymis. Asthma Allergies History of kidney stones Chronic pain in right shoulder Asymmetry of clavicles BMI 25.0-25.9,adult Breast lump BMI 27.0-27.9,adult Vitamin B12 deficiency anemia level low at 241 with hemoglobin 14.6 on 04/21/2023. level at 395 with hemoglobin 15.7 on 05/24/2024. Acute sinusitis, unspecified COVID-19 (10/28/20) Chest pain Colon cancer screening Encounter for wellness examination in adult Encounter for prostate cancer screening PSA 0.8 on 04/21/2023. PSA 0.71 on 05/24/2024. Surgical History Surgical History Right rotator cuff tear right rotator cuff repair with distal clavicle excision on October 07, 2022 H/O sinus surgery S/P cystoscopy H/O thumb surgery Arthritis of right acromioclavicular joint distal clavicle excision with rotator cuff repair on October 07, 2022 Family History Family History Mother Family history of thyroid disease Patient's mother is in good health Grandparent Diabetes mellitus, Onset Age: 72 Family history of alcoholism Family history of malignant neoplasm of stomach Family history of malignant neoplasm Family history of lung cancer Father Patient's father is in good health Family history of cardiovascular disease Diabetes mellitus Sibling Asthma Social History Social History Smoking status: Never smoker Alcohol intake: current Drinks per week: 4 Substance use: never Substance use type: does not use Do You Feel Safe in your Home?: Yes Lack of Transportation: No Lack of Food: Never True Current Housing: I Have Housing Concerned About Future Housing: No Difficulty Paying Gas/Electric Bills: No Difficulty Paying for Meds: No Currently Unemployed: No Education: Master's Degree or Higher Difficulty w/ Childcare or Family Care: No Living arrangements: with family Occupation/Education: occupation Additional occupation/education comments: Teacher Spiritual care concerns: No Comments At time of signature, agree with nursing past medical, surgical, social and family history. There is no relevant family history pertinent to the presenting complaint. Exam Const: General: cooperative, healthy appearing, comfortable, no acute distress and well nourished Nutritional Appearance: well nourished Orientation/consciousness: patient oriented x3 Limitations: no limitations HENMT: Head: normal to inspection, normocephalic and atraumatic Ears: hearing grossly normal bilaterally, external ears normal, TM's normal bilaterally, EAC's normal and no periauricular adenopathy Face/Nose/Sinus: Normal external nose present, Abnormal mucous membranes and turbinates present erythematous bilateral and diffuse, normal facial exam, sinuses nontender and face symmetric Face and sinus: normal facial exam, sinuses nontender and face symmetric Mouth: Yes Normal oral and palatal mucosa present, Yes lip normal, Yes tongue normal, Yes Normal salivary glands and ducts present, Yes oropharynx normal and Yes moist mucous membranes Teeth and gingiva: dentition normal Throat: posterior oropharynx normal, tonsils normal and uvula midline Eyes: General: appearance normal, both eyes and all related structures Alignment and Position: alignment normal and position normal Periorbital: periorbital findings normal Eyelids: eyelids normal Pupils: Equal, round and reactive pupils present Neck: Neck: normal visual inspection, full ROM, no lymphadenopathy and supple Chest: Chest palpation & inspection: normal inspection of the chest and normal palpation of entire chest wall Resp: Effort & Inspection: normal respiratory effort and able to speak in complete sentences Auscultation: clear to auscultation bilaterally, no crackles, no rales, no rhonchi and no wheezes Cardio: Rate: regular rate Rhythm: regular rhythm Heart sounds: S1 normal heart sound present and S2 normal heart sound present GI: Inspection: normal to inspection Skin: General skin exam: normal color and no rashes or lesions noted Neuro: General: patient oriented x3 and moves all extremities Cranial nerves: Yes Equal, round and reactive pupils present Speech: normal speech Gait exam (Neuro): Normal gait present Extrem: General: normal to inspection, full ROM and no edema Psych: Appearance: grossly normal and well kempt Mental Status: mental status grossly normal Speech and movement: Normal speech and movement present Affect: normal affect Attitude: cooperative Thought process: Normal thought process present Course Course Emergency Course: Discharge instructions reviewed with patient, as well as provided in writing per nursing staff. The instructions also include specific and strict return/GO TO THE ER as well as f/u information. All questions have been answered, and the patient deny any further questions with discharge and discharge plan. Portions of this record may have been created with voice recognition software Level of Care: Express Care Visit Vital Signs Vital signs: Vital Signs Temperature 36.8 C 01/04/25 16:38 Pulse Rate 92 01/04/25 16:38 Respiratory Rate 16 01/04/25 16:38 Blood Pressure 130/84 01/04/25 16:38 Pulse Oximetry 99 02/05/25 16:38 Temperature 36.8 C 01/04/25 16:38 Pulse Rate 92 01/04/25 16:38 Respiratory Rate 16 01/04/25 16:38 Blood Pressure 130/84 01/04/25 16:38 Pulse Oximetry 99 01/04/25 16:38 Reviewed MDM - URI/Sore Throat MDM Narrative Medical decision making narrative: Pt well hydrated appearing, in no respiratory distress, hemodynamically stable. Recommend supportive care. The patient is stable at time of discharge the clinical impression was discussed and the patient was given the opportunity to ask questions, which were addressed as completely as possible given the information available at present. Anticipatory guidance and return to care precautions were discussed and the importance of primary care follow-up was stressed and encouraged. The patient voiced understanding of the plan, indications to return, and the need for follow-up. Differential diagnosis considered: Mancia virus, strep pharyngitis, allergic rhinitis, upper respiratory tract infection, sinusitis, rhinosinusitis, nasopharyngitis. viral pharyngitis, otitis media, otitis externa, otitis effusion, foreign body, cerumen impaction, viral syndrome, and influenza.? Exam findings show no acute concerns or changes; patient is non-toxic appearing and is in no distress.? Patient is appropriate for outpatient treatment and follow-up.? Medical Records Attestation: I reviewed the patient's medical records. Lab Data Attestation: I reviewed the patient's lab results. Labs: Lab Results 01/04/25 Range/Units 16:49 POC Influenza A Ag Negative (Negative) POC Influenza B Ag Negative (Negative) POC SARS CoV-2 Ag Negative (Negative) Discharge Plan Discharge Clinical Impression: Upper respiratory infection Qualifiers: URI type: unspecified viral URI Qualified Code(s): J06.9 - Acute upper respiratory infection, unspecified Patient Disposition: Home, Self-Care Condition: Stable Instructions: Upper Respiratory Infection (ED) Additional Instructions: Your Covid and flu are both negative. Keep taking your previously prescribed antibiotic and steroid Your symptoms are likely due to a viral illness, which is not treated with antibiotics. Viral symptoms can be present for up to a few weeks. -Alternate Tylenol and Motrin per package directions for fever or pain. -Antihistamine medication such as Benadryl/Zyrtec at night and Claritin/Michelle during the day can help improve symptoms. -Use Flonase twice a day for 5 days then daily to help reduce the inflammation and dry up your sinuses. -You can also use Sudafed behind the pharmacy counter(12 or 24 hour). Be sure to drink plenty of water with these medications at least 8 ounces with every dose and it is important to drink 8 to 10 glasses of water per day. Water is a natural decongestant -Eat and drink things that are easy to swallow, like tea or soup, or popsicles. -Oral rinses such as: Salt water gargles and/or may use topical anesthetic (eg. Chloraseptic spray) or lozenges to relieve dryness or throat pain). -Frequent hand washing or hand public area supervisor is one of the best ways to prevent spread of infection. -Using a vaporizer or humidifier at night will also help thin secretions and help with coughing up phlegm. -Follow up with primary care provider in 3-5 days if condition is not improving - For new or worsening symptoms go directly to the nearest ER Patient Language: [place] Prescriptions: No Action cefdinir 300 mg capsule 300 mg PO Q12H lamotrigine 25 mg tablet 25 mg PO DAILY diphenhydramine HCl [Benadryl Allergy] 25 mg tablet 25 mg PO Q6H PRN (Reason: allergy symptoms) citalopram 10 mg tablet 10 mg PO DAILY albuterol sulfate 1.25 mg/3 mL solution for nebulization 1.25 mg INHALATION Q4-6H PRN (Reason: bronchospasm) Qty: 90 3RF alprazolam 0.25 mg tablet 0.25 mg PO BID PRN (Reason: anxiety) cetirizine [Zyrtec] 10 mg tablet 10 mg PO DAILY PRN (Reason: allergy symptoms) fluticasone propionate [Flonase Allergy Relief] 50 mcg/actuation spray,suspension 1 spray NASAL BID pantoprazole [Protonix] 40 mg tablet,delayed release (DR/EC) 40 mg PO QAM Qty: 90 3RF prednisone 20 mg tablet 20 mg PO . q.a.m. Qty: 5 0RF irbesartan 150 mg tablet 150 mg PO DAILY Qty: 30 11RF Trelegy Ellipta 200-62.5-25 mcg Blister With Device 1 inh INHALATION DAILY Follow-up/Referrals: Britton Diop MD [Primary Care Provider] - 3 Days Time of Disposition: 16:58
[2025-01-04 16:38] VITALS: BP 130/84; PULSE 92; RESP 16; TEMP 36.8; O2SAT 99
[2025-01-04 16:50] LABS: EDCOVIDSCREEN Negative (Negative); EDINFLUASCREEN Negative (Negative); EDINFLUBSCREEN Negative (Negative)
== END 2025-01-04 17:00 | disposition home or self-care (01) ==
PROVIDERS: Emergency Provider Nurse Practitioner Family; PCP Family Medicine
DX: J06.9 Acute upper respiratory infection, unspecified (principal); I10 Essential (primary) hypertension; Z79.899 Other long term (current) drug therapy; Z20.822 Contact with and (suspected) exposure to COVID-19
CPT/HCPCS: 87426; 87804; 99212; G0463

== ENCOUNTER 2025-09-25 15:30 | Outpatient (RCR) | payer OTHER, SELFPAY ==
--- NOTE | 2025-07-07 16:14 | OPREHPOC ---
Outpatient Therapy Plan of Care This is a Multidisciplinary Plan of Care that may contain components documented by all disciplines (PT, OT, and ST.) PT Problem 1 PT Problem #1 Knowledge Deficit PT Goal 1 Goal / Goal Update 1. Patient to demonstrate independence with HEP for improved self-reliance of symptom management. Target Visit 8 PT Problem 2 PT Problem #2 Impaired Range of Motion PT Goal 1 Goal / Goal Update 1. Pt to demonstrate an increase of L shoulder AROM of 0-160 deg to improve the ability to reach overhead. 2. Pt to demonstrate an increase of L shoulder AROM rotation to 140 degrees of combined movement Target Visit 12 PT Problem 3 PT Problem #3 Impaired Strength PT Goal 1 Goal / Goal Update 1.Patient to demonstrate L shoulder girdle strength >=4+/5 for improved functional stability required for ADLs. 2. Pt reports confidence in return to weightlifting program Target Visit 20 PT Problem 4 PT Problem #4 Pain PT Goal 1 Goal / Goal Update 1. Patient to decrease subjective reports of pain to <2/10 for improved ADL tolerance. 2.Patient will score </=25% disability on the [employer] to demonstrate meaningful improvement in patient's quality of life. Target Visit 12
--- NOTE | 2025-07-07 16:15 | PTOPEVAL1 ---
Assessment and note entered by Herbert Katz, PT Evaluation Information Assessment Status Evaluation Diagnosis S/P L rotator cuff repair ICD-10 Condition Codes (PT) Pain in left shoulder M25.512,Encounter for other orthopedic aftercare Z47.89 Subjective Information Patient presents status post L rotator cuff repair on date of surgery 05/18/25. Patient reports no complications with surgery, Pt reports high pain for about 4 weeks but is starting to resolve. Patient discontinued sling on the 03 of July and reports the mobility gets better each day. 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 Reported Pain Level Pain Score 1: Self Report Assessment PT Clinical Summary Patient presents to physical therapy S/P L rotator cuff repair pain on 05/18/25. Patient demonstrates post surgical weakness, pain, decreased mobility, abnormal posture, and decreased flexibility that limit their ability to perform activities of daily living and functional movements. Patient will benefit from skilled physical therapy to address the above listed deficits and return to prior level of function. Home exercise program instructed and written handout provided, exercises tolerated well with no adverse effects to note post-session. Patient was educated on importance of adherence to home exercise program. Patient was also educated on anatomy, prognosis, home modalities, and plan of care. Plan of Care Interventions Electrical Stimulation,Hot Pack/Cold Pack,Manual Therapy,Neuro Re-education,Therapeutic Activities, Therapeutic Exercise,Other PT Services Indicated Yes Treatment Frequency and 2x week for 12 visits Duration These treatments will address the objective and functional deficits as defined above. The patient will be advanced safely and appropriately in order for the patient to progress towards his/her prior level of function. Additional exercises will be introduced and as well as a comprehensive home exercise program upon discharge, if needed, ?to ensure carryover of functional gains achieved in the clinic. This treatment plan has been reviewed and agreement upon by the patient.
--- NOTE | 2025-08-18 16:06 | PTOPPROG ---
Assessment and note entered by Herbert Katz PT Evaluation Information Assessment Status Progress Diagnosis S/P L rotator cuff repair ICD-10 Condition Codes (PT) Pain in left shoulder M25.512,Encounter for other orthopedic aftercare Z47.89 Subjective Information Pt reports he feels great. He typically wakes up with a little pain and stiffness but it works it self out quickly. Pt reports all the ROM exercises feels great and he his excited to begin strengthening his shoulder. Pt states he returns to doctor 08-24-25 for a follow up. Assessment PT Clinical Summary Patient's L shoulder has improved overall as evidenced by advancements in symptoms, mobility, and overall functional use of the extremity. However, some limitations are still present. Pt is set to see orthopedic surgeon next week and will begin strengthening of L shoulder as ordered. Patient would benefit from continued skilled physical therapy services to address the above listed impairments and facilitate a return to their prior level of function. Plan of Care Interventions Electrical Stimulation,Hot Pack/Cold Pack,Manual Therapy,Neuro Re-education,Therapeutic Activities, Therapeutic Exercise,Other PT Services Indicated Yes Treatment Frequency and 1-2x week 8 visits Duration These treatments will address the objective and functional deficits as defined above. The patient will be advanced safely and appropriately in order for the patient to progress towards his/her prior level of function. Additional exercises will be introduced and as well as a comprehensive home exercise program upon discharge, if needed, ?to ensure carryover of functional gains achieved in the clinic. This treatment plan has been reviewed and agreement upon by the patient.
--- NOTE | 2025-09-19 16:46 | PCPTNOTE ---
Patient called to cancel due to work.
--- NOTE | 2025-09-25 16:26 | PTOPPROG ---
Assessment and note entered by Herbert Katz, PT Evaluation Information Assessment Status Progress Diagnosis S/P L rotator cuff repair ICD-10 Condition Codes (PT) Pain in left shoulder M25.512,Encounter for other orthopedic aftercare Z47.89 Subjective Information Pt states Assessment PT Clinical Summary The patient's left shoulder has improved overall, as evidenced by a subjective decrease in symptoms and objective gains in active mobility, strength, and overall functional use of the extremity during daily tasks. However, some limitations are still present that necessitate continued skilled care, specifically chronic left upper trapezius muscle spasms which limit overhead reach, and measurable decreased left external rotation active and passive range of motion and associated decreased external rotation muscle strength. The patient demonstrates commitment to the home exercise program but requires ongoing manual therapy and therapeutic exercise progression for optimal recovery. Continued skilled physical therapy services are essential to effectively address the listed impairments, facilitate a full resolution of muscle guarding, restore full active and passive range of motion, and fully achieve their prior level of function, such as returning to recreational activity. Plan of Care Interventions Electrical Stimulation,Hot Pack/Cold Pack,Manual Therapy,Neuro Re-education,Therapeutic Activities, Therapeutic Exercise,Ultrasound,Other PT Services Indicated Yes Treatment Frequency and 1x week 4 visits Duration These treatments will address the objective and functional deficits as defined above. The patient will be advanced safely and appropriately in order for the patient to progress towards his/her prior level of function. Additional exercises will be introduced and as well as a comprehensive home exercise program upon discharge, if needed, ?to ensure carryover of functional gains achieved in the clinic. This treatment plan has been reviewed and agreement upon by the patient.
--- NOTE | 2025-09-25 16:28 | PTOPPROG ---
Assessment and note entered by Herbert Katz, PT Evaluation Information Assessment Status Progress Diagnosis S/P L rotator cuff repair ICD-10 Condition Codes (PT) Pain in left shoulder M25.512,Encounter for other orthopedic aftercare Z47.89 Subjective Information The patient reports overall improvement in left shoulder symptoms and is now able to perform all ranges pain free. Pt reports he would like more strength and flexibility in his shoulder and has been dealing with radiating neck pain that goes into his upper trapezius area. Assessment PT Clinical Summary The patient's left shoulder has improved overall, as evidenced by a subjective decrease in symptoms and objective gains in active mobility, strength, and overall functional use of the extremity during daily tasks. However, some limitations are still present that necessitate continued skilled care, specifically chronic left upper trapezius muscle spasms which limit overhead reach, and measurable decreased left external rotation active and passive range of motion and associated decreased external rotation muscle strength. The patient demonstrates commitment to the home exercise program but requires ongoing manual therapy and therapeutic exercise progression for optimal recovery. Continued skilled physical therapy services are essential to effectively address the listed impairments, facilitate a full resolution of muscle guarding, restore full active and passive range of motion, and fully achieve their prior level of function, such as returning to recreational activity. Plan of Care Interventions Electrical Stimulation,Hot Pack/Cold Pack,Manual Therapy,Neuro Re-education,Therapeutic Activities, Therapeutic Exercise,Ultrasound,Other PT Services Indicated Yes Treatment Frequency and 1x week 4 visits Duration These treatments will address the objective and functional deficits as defined above. The patient will be advanced safely and appropriately in order for the patient to progress towards his/her prior level of function. Additional exercises will be introduced and as well as a comprehensive home exercise program upon discharge, if needed, ?to ensure carryover of functional gains achieved in the clinic. This treatment plan has been reviewed and agreement upon by the patient.
== END 2025-10-05 23:59 | disposition home or self-care (01) ==
LOC: ANHGOSHPT 15:30
DX: Z48.89 Encounter for other specified surgical aftercare (principal)
CPT/HCPCS: 97110; 97112; 97140; 97161; 97530

== ENCOUNTER 2025-11-17 15:30 | Outpatient (RCR) | payer OTHER, SELFPAY ==
--- NOTE | 2025-11-17 16:25 | PTOPDC ---
Assessment and note entered by Herbert Katz PT Evaluation Information Assessment Status Discharge Diagnosis S/P L rotator cuff repair ICD-10 Condition Codes (PT) Pain in left shoulder M25.512,Encounter for other orthopedic aftercare Z47.89 Subjective Information The patient reports overall improvement in left shoulder symptoms and is now able to perform all ranges pain free. Pt reports he would like more strength. Reported Pain Level Pain Score 0: Self Report Assessment PT Clinical Summary Patient's left shoulder has improved overall as evidenced by advancements in symptoms, mobility, strength, and overall functional use of the extremity. Patient has met therapy goals and is pleased with progress. Patient to discharge from physical therapy this date and continue with a rotator cuff strengthening program and plans to continue strengthening with a dog trainer. Pt is in strengthening phase of protocol and has greatly progressed. Pt to see surgeon next week to address any post surgical limitations as pertains to return to weight lifting program. Plan of Care PT Services Indicated No
== END 2025-11-20 10:05 | disposition home or self-care (01) ==
LOC: ANHGOSHPT 15:30
DX: Z47.89 Encounter for other orthopedic aftercare (principal); M75.102 Unspecified rotator cuff tear or rupture of left shoulder, not specified as traumatic
CPT/HCPCS: 97110; 97112; 97140; 97530